=== PATIENT | female | born 1965 | race Caucasian/White ===

== ENCOUNTER 2024-02-08 06:00 | Day surgery (SDC) | payer OTHER ==
[~2024-02-08 06:00] MED LIST: BENTYL10 MG/1 ML; OMEPRAZOLE MAGN20 MG; PEPCID40 MG; ZESTRIL20 MG
[2024-02-08] MEDS ORDERED: METRONIDAZOLE/SODIUM CHLORIDE 500 MG/100 ML PIGGYBACK IV ONE ×2 (06:48→07:45)
[2024-02-08] MEDS ORDERED: ENOXAPARIN SODIUM 40 MG/0.4 ML SYRINGE SUBCUTANEO ONE ×2 (06:48→07:45)
[2024-02-08] MEDS ORDERED: CEFTRIAXONE SODIUM 2,000 MG VIAL ONE (06:48)
[2024-02-08] MEDS ORDERED: CEFTRIAXONE SODIUM 2,000 MG VIAL IV ONE (07:45)
[2024-02-08] MEDS ORDERED: NEURONTIN300 MG PO ×2 (09:02→11:21)
[2024-02-08] MEDS ORDERED: PERCOCET 5-3251 EACH PO ×2 (09:02→11:21)
[2024-02-08] MEDS ORDERED: CELEBREX200MG PO (11:21)
== END 2024-02-08 11:50 | disposition home or self-care (01) ==
LOC: CIR.AMB 06:00
PROVIDERS: ATTEND Surgery
DX: K80.10 Calculus of gallbladder with chronic cholecystitis without obstruction (principal); I10 Essential (primary) hypertension